=== PATIENT | female | born 1990 | race Two or more races ===

== ENCOUNTER 2024-09-22 09:13 | Emergency (ER) | payer MEDICAID ==
[~2024-09-22] VITALS: Ht 154.9 cm; Wt 71.0 kg
[2024-09-22 09:28] VITALS: TEMP 97.8
[2024-09-22 09:50] VITALS: BP 119/81; RESP 20; O2SAT 100
[2024-09-22] MEDS ORDERED: ACET500T58 PO (11:22)
[2024-09-22] MEDS ORDERED: IBUP-1454 PO (11:22)
[2024-09-22] MEDS ORDERED: ONDA-155 PO (11:22)
--- NOTE | 2024-09-22 11:22 | ED.PDOC ---
History of Present Illness HPI Comments 34 year old presents for URI symptoms Currently endorsing intermittent fevers that come and go, nonproductive cough, runny nose. Symptoms started three days ago Took [id number] Tylenol. Last dose was 5:00 a.m. Still able to take fluids but c/o nausea Denies persistent chest pain, shortness of breath, leg swelling Denies history of asthma nor any breathing conditions Denies history of pneumonia Denies recent international travel Chief Complaint: Flu like Time Seen by MD: 09:39 Reviewed Notes: Nurses Notes, Medications, Allergies All Other Systems: Reviewed and Negative (per hpi) Physical Exam General Appearance: No Apparent Distress, Normal HEENT: Normal ENT Inspection, Pharynx Normal, TMs Normal Neck: Full Range of Motion, Non-Tender, Normal, Normal Inspection Respiratory: Chest Non-Tender, Lungs Clear, No Accessory Muscle Use, No Respiratory Distress, Normal Breath Sounds Cardiovascular: No Edema, No JVD, No Murmur, No Gallop, Normal Peripheral Pulses, Regular Rate/Rhythm Breast Exam: Deferred Gastrointestinal: No Organomegaly, Non Tender, No Pulsatile Mass, Normal Bowel Sounds, Soft Genitalia: Deferred Pelvic: Deferred Rectal: Deferred Extremities: No calf tenderness, Normal capillary refill, Normal inspection, Normal range of motion, Non-tender, No pedal edema Musculoskeletal : Apperance: Normal Neurologic: Alert, supply chain director II-XII nml as Tested, No Motor Deficits, Normal Affect, Normal Mood, No Sensory Deficits Cerebellar Function: Normal Reflexes: Normal Skin: Dry, Normal Color, Warm Lymphatic: No Adenopathy Was a procedure done? Was a procedure done?: No Fever Differential Dx Differential Diagnosis: Viral Syndrome X-Ray, Labs, Meds, VS Vital Signs Date Time Temp Pulse Resp B/P (MAP) Pulse Ox O2 Delivery O2 Flow Rate FiO2 09/22/24 09:50 97.8 126 20 119/81 (94) 100 09/22/24 09:28 126 20 100 Room Air 09/22/24 09:28 97.8 126 20 119/81 (94) 100 97.8 Current Medications Medications (Trade) Dose Ordered Sig/Rosa Route Start Time Stop Time Status Last Admin Ondansetron HCl (Zofran Po) 4 mg ONCE ONCE PO 09/22/24 11:15 09/22/24 11:16 DC 09/22/24 11:39 Sodium Chloride 500 ml @ 1,000 mls/hr Q30M ONCE IV 09/22/24 11:15 09/22/24 11:44 DC 09/22/24 11:39 X-Ray, Labs, Meds, VS Comment On presentation, the patient is r afebrile and has stable vital signs. The patient does complaint of nausea On physical exam, respirations even and unlabored, clear to auscultation bilaterally. Oxygen stable on room air. Viral testing done and results show influenza Did not have any focal lung findings and therefore chest x-ray was not indicated during this exam Low suspicion of strep pharyngitis given physical exam findings and patient's presenting symptoms No signs of meningismus on exam Overall, the patient is well hydrated and nontoxic. Patient received IV bolus, p.o. Zofran. No adverse reactions. On re-evaluation patient reported significant improvements. Plan for symptomatic control for fever and pain as needed. The patient was able to tolerate p.o. intake in the ED. at this time, patient is safe for discharge home. The exam findings and plan discussed. We will discharge home with PCP follow up and strict return precautions. Discussed that cough can linger up to 6 weeks after viral URI Supportive care and return precautions discussed Counseled viral infection and explained that antibiotics would not be helpful in resolving the illness sooner. Recommended vitamin C, rest, handwashing, and symptomatic care. Expect 2-week course with possibly of cough lingering up to 6 weeks. Nonpharmacological remedies for fluids has been recommended as well Time of 1ST Reevaluation: 11:00 Reevaluation 1ST: Improved Patient Education/Counseling: Diagnosis, Treatment Family Education/Counseling: Diagnosis, Treatment Departure 1 Departure Time of Disposition: 11:21 Impression: Primary Impression: Influenza B Disposition: HOME / SELF CARE / HOMELESS Condition: Stable e-Prescriptions Ondansetron HCl (Ondansetron) 4 Mg Tab 4 MG PO Q8HP PRN for 3 Days, #9 TAB 0 Refills Prov: ALBINO TUCKER CHUCKING AND BORING MACHINE OPERATOR 09/22/24 Acetaminophen (Acetaminophen) 500 Mg Tab 500 MG PO Q4HP PRN for 10 Days, #50 TAB 0 Refills Prov: ALBINO TUCKER CHUCKING AND BORING MACHINE OPERATOR 09/22/24 Ibuprofen (Ibuprofen) 600 Mg Tab 1 TAB PO TID for 10 Days, #30 TAB 0 Refills Prov: ALBINO TUCKER CHUCKING AND BORING MACHINE OPERATOR 09/22/24 Critical Care Note Critical Care Time?: No Stability Stability form required: No Heart Score Heart Score: Heart Score Response (Comments) Value History N/A 0 EKG N/A 0 Age N/A 0 Risk Factors N/A 0 Troponin N/A 0 Total 0 ALBINO TUCKER NP Sep 22, 2024 11:22
[2024-09-22] MEDS: ONDANSETRON ODT 4 MG TAB PO ONE (11:39)
[2024-09-22] MEDS: SODIUM CHLORIDE 0.9% 500 ML IV ONE (11:39)
[2024-09-22 12:11] VITALS: PULSE 101
== END 2024-09-22 12:08 | disposition home or self-care (01) ==
LOC: ER 09:13
DX: J10.1 Influenza due to other identified influenza virus with other respiratory manifestations (principal)
CPT/HCPCS: 96360; 99283; J7040; Q0162

== ENCOUNTER 2025-02-14 12:26 | Emergency (ER) | payer MEDICAID ==
[~2025-02-14] VITALS: Ht 154.9 cm; Wt 67.0 kg
[~2025-02-14 12:26] MED LIST: ACET500T58 PO; IBUP-1454 PO; ONDA-155 PO
--- NOTE | 2025-02-14 12:46 | ED.PDOC ---
History of Present Illness HPI Comments 34-year-old female who comes with a chief complaint of right-sided flank pain. The patient states with the same symptoms started proximally 2 days ago. The pain is rated as a 9/10 and is sharp in nature. It is associated with some nausea as well as vomiting x2. There has been no fever or chills. The patient was recently seen here and diagnosed with a kidney stones. The patient at this time advised me hematuria. She was able to ambulate into the emergency department without any difficulty. Time Seen by MD: 12:28 Primary Care Provider: UNKNOWN Reviewed Notes: Nurses Notes, Medications, Allergies (No allergies to medi cations) Allergies: Coded Allergies: NO KNOWN ALLERGIES (Unverified , 08/27/19) Home Meds Active Scripts Ondansetron HCl (Ondansetron) 4 Mg Tab, 4 MG PO Q8HP PRN for 3 Days, #9 TAB 0 Refills Prov:ALBINO TUCKER HUMAN RESOURCES ADVISOR 09/22/24 Acetaminophen (Acetaminophen) 500 Mg Tab, 500 MG PO Q4HP PRN for 10 Days, #50 TAB 0 Refills Prov:ALBINO TUCKER HUMAN RESOURCES ADVISOR 09/22/24 Ibuprofen (Ibuprofen) 600 Mg Tab, 1 TAB PO TID for 10 Days, #30 TAB 0 Refills Prov:ALBINO TUCKER HUMAN RESOURCES ADVISOR 09/22/24 Information Source: Patient Mode of Arrival: Ambulatory Severity: Moderate Timing: Days (Symptoms started 2 days ago) Duration: Since onset Prehospital treatment: None Location: Right-sided flank pain Associated signs and symptoms The pain as sharp in nature in his associated with nausea as well as 2 episodes of vomiting today Past Medical History PAST MEDICAL HISTORY: Kidney Stones Surgical History: BTL, Cholecystectomy, 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 History Family History Family History: No family hx of Cancer, No family hx of DM, No family hx of Heart lila Social History Smoker: Non-Smoker Alcohol: Occasionally Drugs: Marijuana Lives In: Home Constitutional: denies: chills, diaphoresis, fatigue, fever, malaise, sweats, weakness, others EENTM: denies: blurred vision, double vision, ear bleeding, ear discharge, ear drainage, ear pain, ear ringing, eye pain, eye redness, hearing loss, mouth pain, mouth swelling, nasal discharge, nose bleeding, nose congestion, nose pain, photophobia, tearing, throat pain, throat swelling, voice changes, others Respiratory: denies: cough, hemoptysis, orthopnea, SOB at rest, shortness of breath, SOB with excertion, stridor, wheezing, others Cardiovascular: denies: chest pain, dizzy spells, diaphoresis, Dyspnea on exertion, edema, irregular heart beat, left arm pain, lightheadedness, palpitations, PND, syncope, others Gastrointestinal: reports: abdominal pain; denies: abdomen distended, blood streaked bowels, constipated, diarrhea, dysphagia, difficulty swallowing, hematemesis, melena, nausea, poor appetite, poor fluid intake, rectal bleeding, rectal pain, vomiting, others Genitourinary: reports: flank pain (Right-sided flank pain); denies: abnormal vagina bleeding, burning, dyspareunia, dysuria, frequency, hematuria, incontinence, pain, , vagina discharge, urgency, others Neurological: denies: dizziness, fainting, headache, left sided numbness, left sided weakness, numbness, paresthesia, pre-existing deficit, right sided numbness, right sided weakness, seizure, speech problems, tingling, tremors, weakness, others Musculoskeletal: denies: back pain, gout, joint pain, joint swelling, muscle p ain, muscle stiffness, neck pain, others Integumetry: denies: bruises, change in color, change in hair/nails, dryness, laceration, lesions, lumps, rash, wounds, others Allergic/Immunocompromised: denies: Difficulty Healing, Frequent Infections, Hives, Itching, others Hematologic/Lymphatic: denies: anemia, blood clots, easy bleeding, easy bruising, swollen glands, others Endocrine: denies: excessive hunger, excessive sweating, excessive thirst, excessive urination, flushing, intolerance to cold, intolerance to heat, unexplained weight gain, unexplained weight loss, others Psychiatric: denies: anxiety, bipolar disorder, depression, hopeless, panic disorder, schizophrenia, sleepless, suicidal, others Physical Exam General Appearance: Mild Distress HEENT: Normal ENT Inspection, Pharynx Normal, TMs Normal Neck: Full Range of Motion, Non-Tender, Normal, Normal Inspection Respiratory: Chest Non-Tender, Lungs Clear, No Accessory Muscle Use, No Respiratory Distress, Normal Breath Sounds Cardiovascular: No Edema, No JVD, No Murmur, No Gallop, Normal Peripheral Pulses, Regular Rate/Rhythm Breast Exam: Deferred Gastrointestinal: No Organomegaly, Non Tender, No Pulsatile Mass, Normal Bowel Sounds, Soft Genitalia: Deferred Pelvic: Deferred Rectal: Deferred Extremities: No calf tenderness, Normal capillary refill, Normal inspection, Normal range of motion, Non-tender, No pedal edema Musculoskeletal : Location: Right Extremity Location: Back Apperance: Tenderness: Mild Neurologic: Alert, cap maker II-XII nml as Tested, No Motor Deficits, Normal Affect, Normal Mood, No Sensory Deficits Cerebellar Function: Normal Reflexes: Normal Skin: Dry, Normal Color, Warm Lymphatic: No Adenopathy Was a procedure done? Was a procedure done?: No Differential Dx Considerations may include: Kidney stones, generalized weakness, UTI X-Ray, Labs, Meds, VS Vital Signs Date Time Temp Pulse Resp B/P (MAP) Pulse Ox O2 Delivery O2 Flow Rate FiO2 02/14/25 15:14 57 18 97 Room Air 02/14/25 15:12 87 18 127/79 (95) 98 02/14/25 13:06 70 18 98 Room Air* 0 21 02/14/25 13:06 99.0 70 18 120/72 (88) 98 99.0 02/14/25 12:43 97.6 86 22 109/73 (85) 96 97.6 Lab Test 02/14/25 13:04 02/14/25 12:57 Range/Units Urine Color Yellow Yellow Urine Clarity Turbid H Clear Urine pH 6.5 5.0-9.0 Urine Specific [place] 1.028 1.001-1.035 Urine Protein Trace H Negative Urine Ketones 1+ H Negative Urine Blood 1+ H Negative /uL Urine Nitrite Negative Negative Urine Bilirubin Negative Negative Urine Urobilinogen 2 H Negative mg/dL Urine Leukocyte Esterase 1+ Negative /uL Urine RBC 11 0 - 4 /hpf Urine Microscopic WBC 3 0-5 /HPF Urine Squamous Epithelial Cells Few <5 /hpf Urine Bacteria None seen None Seen /hpf Urine Mucus Moderate None Seen Urine Glucose Normal Normal mg/dL Urine Test Negative Negative White Blood Count 7.1 4.4-10.8 10^3/uL Red Blood Count 4.66 4.0-5.20 10^6/uL Hemoglobin 12.7 12.2-16.2 g/dL Hematocrit 38.6 36.0-46.0 % Mean Corpuscular Volume 82.8 80.0-100.0 fL Mean Corpuscular Hemoglobin 27.4 L 28.0-32.0 pg Mean Corpuscular Hemoglobin Concent 33.0 32.0-36.0 g/dL Red Cell Distribution Width 15.8 H 11.8-14.3 % Platelet Count 276 140-450 10^3/uL Mean Platelet Volume 9.1 6.9-10.8 fL Neutrophils (%) (Auto) 75.3 37.0-80.0 % Lymphocytes (%) (Auto) 20.0 10.0-50.0 % Monocytes (%) (Auto) 3.6 0.0-12.0 % Eosinophils (%) (Auto) 0.4 0.0-7.0 % Basophils (%) (Auto) 0.7 0.0-2.0 % Neutrophils # (Auto) 5.4 1.6-8.6 10 ^3/uL Lymphocytes # (Auto) 1.4 0.4-5.4 10 ^3/uL Monocytes # (Auto) 0.3 0-1.3 10 ^3/uL Eosinophils # (Auto) 0 0-0.8 10 ^3/uL Basophils # (Auto) 0 0-0.2 10 ^3/uL Nucleated Red Blood Cells 0.2 % Sodium Level 144 136-145 mmol/L Potassium Level 3.8 3.5-5.1 mmol/L Chloride Level 110 H 98-107 mmol/L Carbon Dioxide Level 27 20-31 mmol/L Anion Gap 7 5-15 Blood Urea Nitrogen 10 9-23 mg/dL Creatinine 0.73 0.550-1.02 mg/dL Glomerular Filtration Rate Calc 111 >90 mL/min BUN/Creatinine Ratio 13.7 10.0-20.0 Serum Glucose 98 74-106 mg/dL Calcium Level 9.7 8.7-10.4 mg/dL Current Medications Medications (Trade) Dose Ordered Sig/Rosa Route Start Time Stop Time Status Last Admin Ondansetron HCl (Zofran) 4 mg ONCE ONCE IV 02/14/25 12:45 02/14/25 12:46 DC 02/14/25 13:09 Sodium Chloride 1,000 ml @ 1,000 mls/hr Q1H ONCE IVB 02/14/25 12:45 02/14/25 13:44 DC 02/14/25 13:09 Ketorolac Tromethamine (Toradol Injection) 30 mg ONCE ONCE IV 02/14/25 12:45 02/14/25 12:46 DC 02/14/25 13:09 Ceftriaxone Sodium 50 ml @ 100 mls/hr ONCE ONCE IV 02/14/25 15:00 02/14/25 15:29 DC 02/14/25 15:17 IV Hep-Lock was established The patient was given Zofran 4 mg IV push March the patient was given a 1 L bolus of normal saline For the pain, the patient was given ketorolac 30 mg IV push new line the patient has a UTI The patient was given Rocephin 1 g IV piggyback for the UTI The patient's CAT scan of the abdomen and pelvis shows: IMPRESSION: 1. 2 mm nonobstructive calculus in the lower pole of the right kidney. 2. Cholecystectomy. New out at this time, the patient is being discharged The CBC and chemistry panel are within normal limits to monitor patient will return to the emergency department condition worsens Images Reviewed?: Images reviewed and evaluated by me Time of 1ST Reevaluation: 15:37 Reevaluation 1ST: Improved Patient Education/Counseling: Diagnosis, Treatment, Prognosis, Need For Follow Up Family Education/Counseling: No Family Present Departure 1 Departure Time of Disposition: 15:37 Impression: Primary Impression: Right flank pain Additional Impression: UTI (urinary tract infection) Qualified Codes: N30.00 - Acute cystitis without hematuria Disposition: HOME / SELF CARE / HOMELESS Condition: Fair Discharged With: Self Critical Care Note Critical Care Time?: No Stability Stability form required: No Heart Score Heart Score: Heart Score Response (Comments) Value History N/A 0 EKG N/A 0 Age N/A 0 Risk Factors N/A 0 Troponin N/A 0 Total 0 CECILE HAYNES MD Feb 14, 2025 12:46
[2025-02-14 13:06] VITALS: PULSE 70; RESP 18; TEMP 99; O2SAT 98
[2025-02-14 13:07] LABS: Basophils # (auto) 0 10 ^3/uL (0-0.2); Basophils % (auto) 0.7 % (0.0-2.0); Eosinophils # (auto) 0 10 ^3/uL (0-0.8); Eosinophils % (auto) 0.4 % (0.0-7.0); Hematocrit 38.6 % (36.0-46.0); Hemoglobin 12.7 g/dL (12.2-16.2); Lymphocytes # (auto) 1.4 10 ^3/uL (0.4-5.4); Mean Corpuscular Hemoglobin 27.4 pg (28.0-32.0); Mean Corpuscular Volume 82.8 fL (80.0-100.0); Monocytes # (auto) 0.3 10 ^3/uL (0-1.3); Monocytes % (auto) 3.6 % (0.0-12.0); Neutrophils # (auto) 5.4 10 ^3/uL (1.6-8.6); Neutrophils % (auto) 75.3 % (37.0-80.0); Nucleated Red Blood Cells % 0.2 %; Platelet Count (auto) 276 10^3/uL (140-450); Red Blood Cells 4.66 10^6/uL (4.0-5.20); Red Cell Distribution Width 15.8 % (11.8-14.3); White Blood Cell 7.1 10^3/uL (4.4-10.8)
[2025-02-14] MEDS: SODIUM CHLORIDE 0.9% 1,000 ML IVB ONE (13:09)
[2025-02-14] MEDS: KETOROLAC TROMETH 30 MG/ML 1ML VIAL IV ONE (13:09)
[2025-02-14] MEDS: ONDANSETRON HCL 4 MG/2 ML VIAL IV ONE (13:09)
[2025-02-14 13:18] LABS: Potassium 3.8 mmol/L (3.5-5.1); Sodium 144 mmol/L (136-145)
[2025-02-14 13:19] LABS: Anion Gap 7 (5-15); Calcium 9.7 mg/dL (8.7-10.4); Carbon Dioxide 27 mmol/L (20-31)
[2025-02-14 13:24] LABS: BUN/Creatinine Ratio 13.7 (10.0-20.0); Blood Urea Nitrogen 10 mg/dL (9-23); Glucose 98 mg/dL (74-106)
[2025-02-14 13:28] LABS: Chloride 110 mmol/L (98-107)
[2025-02-14 14:03] LABS: Urine Bacteria None Seen /hpf (None Seen)
[2025-02-14 14:10] LABS: Urine Blood 1+ /uL (Negative); Urine Clarity Turbid (Clear); Urine Color Yellow (Yellow); Urine Mucus MODERATE (None Seen); Urine Protein, UAD TRACE (Negative); Urine Specific Gravity 1.028 (1.001-1.035); Urine Squamous Epithelial Cell FEW /hpf (<5); Urine Urobilinogen 2 mg/dL (Negative); Urine WBC 3 /HPF (0-5); Urine pH 6.5 (5.0-9.0)
--- NOTE | 2025-02-14 14:52 | DVH ---
CT ABDOMEN AND PELVIS WITHOUT CONTRAST CLINICAL HISTORY: Right flank pain TECHNIQUE: Multiple contiguous axial images of the abdomen and pelvis without intravenous contrast. T he images were reformatted degenerate coronal and sagittal reconstructions. All CT scans at this medical facility are performed using dose modulation techniques as appropriate t o a performed exam including the following:Automated exposure control was utilized; adjustment of the MA and/or KV according to patient size; and use of iterative reconstruction technique. Radiation Dose Information: CT Dose: CTDI volume is 7.43 mGy. Dose-length product is 399.65 mGy*cm Comparison: None FINDINGS: Evaluation of the abdomen and pelvis is limited without intravenous contrast. There is a 2 mm calculus in the lower pole of the right kidney. There is no left renal calculus. Th ere is no hydronephrosis. There is no evidence of a ureteral calculus or hydroureter. Gallbladder is surgically absent. The liver, pancreas, adrenal glands, and spleen appear within n ormal limits. There is no gross evidence of abdominal lymphadenopathy. There is no free fluid or free air. The stomach grossly appears unremarkable. The small and large bowel loops demonstrate normal caliber and distribution. A normal appearing appendix is seen in the right lower quadrant abdomen. The abdominal aorta and IVC appear within normal limits. Bladder is decompressed limiting evaluation. The uterus appears within normal limits.. There is no g ross evidence of a pelvic mass. There is no free fluid collection. Lung bases are clear. There is no acute osseous abnormality. IMPRESSION: 1. 2 mm nonobstructive calculus in the lower pole of the right kidney. 2. Cholecystectomy. HS:Y
[2025-02-14 15:12] VITALS: BP 127/79
[2025-02-14 15:14] VITALS: PULSE 57; RESP 18; O2SAT 97
[2025-02-14] MEDS: cefTRIAXone 1GM/50ML D5W 50 ML IV ONE (15:17)
[2025-02-14] MEDS ORDERED: TRAM-626 PO (15:40)
[2025-02-14] MEDS ORDERED: CIPR-173 PO (15:40)
== END 2025-02-14 15:50 | disposition home or self-care (01) ==
LOC: ER 12:26
DX: N39.0 Urinary tract infection, site not specified (principal); N20.0 Calculus of kidney; Z90.49 Acquired absence of other specified parts of digestive tract; Z98.51 Tubal ligation status
CPT/HCPCS: 36415; 74176; 80048; 81001; 81025; 85025; 96361; 96365; 96375; 99285; J0696; J1885; J2405; J7030